=== PATIENT | female | born 1965 | race Caucasian/White ===

== ENCOUNTER 2024-04-20 19:40 | Emergency (ER) | payer OTHER, SELFPAY ==
[2024-04-20 19:42] VITALS: BP 169/75
--- NOTE | 2024-04-20 20:23 | ED.GENMED ---
History of Present Illness
General
Chief Complaint: Skin Problem
Source: patient
Exam Limitations: none
Time Seen by Provider: 04/20/24 19:53
History of Present Illness
History of Present Illness:
This is a 58 year old female that comes in with c/o right hand wound. States that last Tuesday she was going down the slide with her grandchild and she scrapped her hand on the slid. States that this week it got puffy and now it has started to
hurt. States that the bone on the wrist is tender. States that she felt she better get it checked. Denies any fever, chills, chest pain, SOB, abd pain, nausea, vomiting, diarrhea, headache, dizziness.
Past History
Past History
ED Past Medical History: HTN, Hypercholesterolemia, Psychiatric (Depression) and Other (ADHD)
ED Past Surgical History: None
Social History
Tobacco: Non-smoker
Alcohol: None
Personal:
Living: with family
Review of Systems
Review of Systems
All Other Systems: ROS reviewed and negative except as documented in HPI and ROS
Constitutional: Reports no symptoms; Denies fever or chills
EENT: Reports no symptoms
Respiratory: Reports no symptoms; Denies cough or trouble breathing
Cardiac: Reports no symptoms; Denies chest pain
ABD/GI: Reports no symptoms; Denies abdominal pain, nausea, vomiting or diarrhea
: Reports no symptoms; Denies dysuria, frequency or urgency
Musculoskeletal: Reports no symptoms
Skin: Reports other (wound right dorsal aspect )
Neurological: Reports no symptoms; Denies dizzy or headache
Psychiatric: Reports no symptoms
Phy Exam
General Physical Exam
General Presentation: well appearing and no apparent distress
General age: appears stated age
General Skin: warm and dry
General Habitus: normal
General Mental: alert
General Hydration: appears well hydrated
ENT Exam
ENT Exam: TM's normal, pharynx normal and neck supple
Eye Exam
Eye Exam: EOMI
Cardiovascular Exam
Cardiovascular Exam: regular rate/rhythm, no edema, no murmur and normal peripheral pulses
Pulmonary Exam
Pulmonary Exam: lungs clear, no respiratory distress, no rales, chest non tender, no crackles, no rhonchi, no wheezing and no cough
Musculoskeletal Exam
Musculoskeletal Exam: full ROM and no edema
Skin Exam
Skin Exam: normal color, warm/dry, no petechia and redness (Redness of the right hand on the dorsal aspect with slight redness over the ulnar. )
Psychiatric Exam
Psychiatric Exam: normal mood/affect
Course
Orders/Labs/Results
Orders:
Orders
04/20/24 20:23
Doxycycline [Vibramycin] 100 mg PO NOW STA
Vital Signs
Initial and Last Documented VS:
Initial Vital Signs
Temp Pulse Resp BP Pulse Ox
98.3 F 78 20 169/75 99
04/20/24 19:42 04/20/24 19:42 04/20/24 19:42 04/20/24 19:42 04/20/24 19:42
Last Documented Vital Signs
Temp Pulse Resp BP Pulse Ox
98.3 F 78 16 169/75 99
04/20/24 19:42 04/20/24 19:42 04/20/24 20:00 04/20/24 19:42 04/20/24 19:42
MDM/Problems Addressed
Differential Diagnosis Includes:
Cellulitis. Open wound
MDM/Problems Addressed:
This is a 58 year old female that scrapped her hand last Tuesday on a slide. States that the wound is now sore and started to get red.
Explained to patient that this looks to be infected with the starting of Cellulitis. Will start patient on antibiotics. Patient to use Bacitracin for the wound. Follow up with the family doctor. Return with any concerns.
Chronic conditions affecting care:
NA
Acute Exacerbation and/or Progression of Chronic Illness:
NA
*Pulse Oximetry
Patient hypoxic: no
*EKG
Interpreted by ED Provider?: NA
Rate: EKG- N/A
*Tire Sorter Interpretation
Rate: Tire Sorter- N/A
*Critical Care Note
Total Time (30-74mins, 75-104mins- exclusive of procedures): Not Applicable
ED Attending Note
-
Portions of this chart may have been created with voice recognition software.� Occasional wrong word or��sound alike� substitutions may have occurred due to the inherent limitations of voice recognition software.
Discharge Plan
Departure
Patient Disposition: Home (Routine Discharge)
Date of Disposition: 04/20/24
Time of Disposition: 20:33
Patient with high blood pressure during this ER visit?: Yes
Condition: Good
Covid-19: Not Applicable
Discharge Problem:
early Cellulitis
Instructions: Wound Care (DC), Cellulitis (Skin Infection), Adult (DC), BLOOD PRESSURE
Prescriptions:
New
doxycycline hyclate 100 mg capsule
100 mg PO BID Qty: 19 0RF
No Action
atorvastatin 10 MG tablet
10 mg PO DAILY
citalopram 20 MG tablet
20 mg PO DAILY
methylphenidate HCl [Ritalin LA] 30 MG capsule,ER biphasic 50-50
30 mg PO DAILY
diclofenac potassium 50 mg tablet
50 mg PO BID Qty: 20 0RF
oxycodone 5 mg tablet
5 mg PO Q8H PRN (Reason: Pain) Qty: 14 0RF
Referrals:
Derek Platt MD [Family Provider] - Follow up in 5-7 days
Activity Restrictions/Additional Instructions:
As discussed, this looks to be the start of Cellulitis. Please keep the wound clean with warm soapy water. Then use the bacitracin on the wound and leave open to the air. You have been given your first dose of antibiotic here and a prescription has
been sent to your Pharmacy. Follow up with the family doctor in 5-7 days for recheck. IF YOU HAVE ANY FEVER, INCREASED REDNESS, STREAKS GOING UP THE ARM OR YOU HAVE ANY OTHER CONCERNS PLEASE RETURN TO THE EMERGENCY ROOM.
Interventions
Interventions:
*Risk Screen - Suicide Last Done: 04/20/24 19:42
*General Assessment Last Done: 04/20/24 19:42
*Neglect/Abuse Screening Last Done: 04/20/24 19:42
Discharge Date and Time
Print Language: STATELESS
[2024-04-20] MEDS: VIBRAMYCIN 100 MG PO (20:30)
== END 2024-04-20 20:40 | disposition home or self-care (01) ==
LOC: EMR 19:40
PROVIDERS: EMERGENCY PHYSICIAN Emergency Medicine; FAMILY PHYSICIAN Internal Medicine
DX: L03.113 Cellulitis of right upper limb (principal); S61.401A Unspecified open wound of right hand, initial encounter; W22.09XA Striking against other stationary object, initial encounter; I10 Essential (primary) hypertension
CPT/HCPCS: 99283

== ENCOUNTER → 2024-06-21 17:36 | Outpatient (REF) | payer OTHER, SELFPAY | LOC: WDC 17:36 | PROVIDERS: ATTENDING PHYSICIAN Obstetrics & Gynecology; FAMILY PHYSICIAN Internal Medicine | DX: Z12.31 Encounter for screening mammogram for malignant neoplasm of breast (principal) | CPT/HCPCS: 77063; 77067 ==

== ENCOUNTER → 2025-08-26 19:09 | Outpatient (REF) | payer OTHER, SELFPAY | LOC: WDC 19:09 | PROVIDERS: ATTENDING PHYSICIAN Obstetrics & Gynecology; FAMILY PHYSICIAN Internal Medicine | DX: Z12.31 Encounter for screening mammogram for malignant neoplasm of breast (principal) | CPT/HCPCS: 77063; 77067 ==